=== PATIENT | female | born 1980 | race African-American/Black ===

== ENCOUNTER 2021-01-27 17:28 | Emergency (ER) | payer SELFPAY ==
[~2021-01-27] VITALS: Ht 177.8 cm; Wt 75.0 kg
[2021-01-27 17:43] VITALS: BP 137/95
[2021-01-27] MEDS ORDERED: TOPUD PO (18:26)
[2021-01-27] MEDS ORDERED: ACETAMINOPHEN 325MG TABLET PO ONE (18:30)
== END 2021-01-27 19:00 | disposition home or self-care (01) ==
LOC: ER 17:28
DX: M54.5 Low back pain (principal); M54.2 Cervicalgia; V43.52XA Car driver injured in collision with other type car in traffic accident, initial encounter; Y93.89 Activity, other specified; Y92.488 Other paved roadways as the place of occurrence of the external cause
CPT/HCPCS: 99282

== ENCOUNTER 2024-01-27 16:35 | Emergency (ER) | payer MEDICAID ==
[~2024-01-27] VITALS: Ht 170.2 cm; Wt 91.0 kg
[~2024-01-27 16:35] MED LIST: TOPUD PO
[2024-01-27 16:50] VITALS: O2SAT 99
[2024-01-27] MEDS ORDERED: AMOX-494 MT (17:37)
[2024-01-27] MEDS: DEXAMETHASONE 4MG/ML 1ML VIAL IV ONE (18:40)
[2024-01-27 18:42] VITALS: BP 131/87; PULSE 72; RESP 20; TEMP 99.1
== END 2024-01-27 18:44 | disposition home or self-care (01) ==
LOC: ER 16:35
DX: J02.9 Acute pharyngitis, unspecified (principal); H66.92 Otitis media, unspecified, left ear
CPT/HCPCS: 99283; 87430; 87070; J1100